=== PATIENT | female | born 1970 | race Caucasian/White ===

== ENCOUNTER 2024-01-26 12:12 | Emergency (ER) | payer OTHER ==
[2024-01-26] MEDS: Famotidine 20 MG Tab PO ONE (12:52)
[2024-01-26] MEDS: predniSONE 20 MG Tab PO ONE (12:52)
[2024-01-26] MEDS: diphenhydrAMINE 50 MG Cap PO ONE (12:52)
[2024-01-26 13:11] VITALS: BP 146/90; PULSE 61
== END 2024-01-26 13:08 | disposition home or self-care (01) ==
LOC: FB.ED 12:12
DX: T63.461A Toxic effect of venom of wasps, accidental (unintentional), initial encounter (principal); T63.481A Toxic effect of venom of other arthropod, accidental (unintentional), initial encounter; I10 Essential (primary) hypertension; E66.9 Obesity, unspecified; Z68.29 Body mass index [BMI] 29.0-29.9, adult; Z90.49 Acquired absence of other specified parts of digestive tract; Z87.891 Personal history of nicotine dependence; Z79.899 Other long term (current) drug therapy; Z88.1 Allergy status to other antibiotic agents; Z91.030 Bee allergy status
CPT/HCPCS: 99282; A9270; J7512